=== PATIENT | male | born 1955 | race Caucasian/White ===

== ENCOUNTER 2019-08-03 12:51 | Outpatient (CLI) | payer MEDICARE, OTHER ==
[2019-08-03] MEDS ORDERED: Aspirin Chewable 81 MG TAB ONE (15:35)
== END 2019-08-03 12:52 | disposition home or self-care (01) ==
PROVIDERS: ATTEND Family Medicine
DX: R94.31 Abnormal electrocardiogram [ECG] [EKG] (principal); I10 Essential (primary) hypertension
CPT/HCPCS: 93017

== ENCOUNTER 2019-09-20 06:06 | Outpatient (CLI) | payer MEDICARE, OTHER ==
[2019-09-20 11:04] LABS: #Basophils 0.1 thou/uL (0.0-0.2); #Eosinphils 0.1 thou/uL (0.0-0.7); #Lymphocytes 2.1 thou/uL (1.20-3.40); #Monocytes 0.8 thou/uL (0.11-0.59); #Neutrophils 3.6 thou/uL (1.40-6.50); %Eosinophils 2.1 % (0.0-10.0); %Lymphocytes 31.8 % (21.0-51.0); %Monocytes 11.5 % (0.0-10.0); %Neutrophils 53.7 % (42.0-75.0); Hemoglobin 15.2 g/dL (14.0-18.0); Mean Corpuscular HGB CONC 33.9 g/dL (32.0-36.0); Mean Corpuscular Hemoglobin 33.9 pg (27.0-31.0); Mean Platelet Volume 7.9 fL (7.4-10.4); Platelet Count 234 thou/uL (130-400); RBC Distribution Width 11.5 % (11.5-14.5); Red Blood Cell (RBC) Count 4.47 mill/uL (4.70-6.10); White Blood Cell (WBC) Count 6.7 thou/uL (4.8-10.8)
[2019-09-20 11:30] LABS: ALT (SGPT) 32 U/L (8-55); AST (SGOT) 28 U/L (5-34); Albumin 4.7 g/dL (3.4-4.8); Alkaline Phosphatase 47 U/L (40-110); Anion Gap 14 mmol/L (10-20); BUN (Urea Nitrogen) 22 mg/dL (8.4-25.7); Bilirubin, Total 0.6 mg/dL (0.2-1.2); Calc. Creatinine Clearance 0 mL/min (70-130); Calcium 9.1 mg/dL (7.8-10.44); Carbon Dioxide 22 mmol/L (23-31); Chloride 107 mmol/L (98-107); Estimated GFR-MDRD 60; Globulin 2.5 g/dL (2.4-3.5); Glucose 92 mg/dL (80-115); Potassium 4.2 mmol/L (3.5-5.1); Protein, Total 7.2 g/dL (5.8-8.1); Sodium 139 mmol/L (136-145)
[2019-09-20 17:21] LABS: SARS-CoV-2 MS2 Positive; SARS-CoV-2 N Gene Negative; SARS-CoV-2 S Gene Negative; SARS-CoV-2 orf1ab Negative
== END 2019-09-20 06:07 | disposition home or self-care (01) ==
LOC: LABBT 06:06
PROVIDERS: ATTEND Internal Medicine Cardiovascular Disease
DX: Z01.812 Encounter for preprocedural laboratory examination (principal); Z11.59 Encounter for screening for other viral diseases; R94.39 Abnormal result of other cardiovascular function study
CPT/HCPCS: 80053; 85025; U0002; 87635; U0003

== ENCOUNTER 2019-09-22 06:04 | Observation (INO) | payer MEDICARE, OTHER ==
[2019-09-20 09:21] VITALS: BMI 30.1
[2019-09-22] MEDS ORDERED: Diazepam 5 MG TAB ONE (06:52)
[2019-09-22] MEDS ORDERED: Fentanyl 100 MCG/2 ML VIAL ONE ×2 (07:23→13:29)
[2019-09-22] MEDS ORDERED: Midazolam HCl 2 mg/2 ml Vial ONE ×2 (07:23→13:28)
[2019-09-22] MEDS ORDERED: Nitroglycerin 100MG/250ML BOT 250 ML ONE (08:02)
[2019-09-22] MEDS ORDERED: Heparin 10,000 UNITS/1 ML VIAL ONE ×2 (08:16→08:55)
[2019-09-22] MEDS ORDERED: Iopamidol 370 76% 50 ML VIAL FS ONE (09:19)
[2019-09-22] MEDS ORDERED: Iopamidol 370 76% 100 ML VIAL ONE (09:19)
[2019-09-22] MEDS ORDERED: Atropine Sulfate 1 mg/10 ml Syringe ONE (13:27)
[2019-09-22] MEDS ORDERED: Aspirin Chewable 81 MG TAB ONE (14:13)
[2019-09-22] MEDS ORDERED: Sodium Chloride 0.9% 1,000 ML IV SCH (14:15)
[2019-09-22] MEDS ORDERED: Midazolam HCl 2 mg/2 ml Vial IVP SCH (14:30)
[2019-09-22] MEDS ORDERED: Fentanyl 100 MCG/2 ML VIAL SLOW IVP SCH (14:30)
[2019-09-22] MEDS ORDERED: Loratadine 10 MG TAB PO PRN (14:41)
--- NOTE | 2019-09-22 18:38 | PRG ---
DATE OF SERVICE: 09/22/2019 Mr. Abraham did develop urinary retention today. The patient was noted to have some urinary retention just after the procedure, but did not void in the next few hours. Therefore, a Valerio catheter was placed. His nurse, Александр, informed me that he had 1 L of urine. I spoke with Dr. Lauren who recommends keeping the Valerio catheter in and removing it in the office. Also will start him on Flomax. 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 The patient did not have much urgency at all. He said he gets up about 3 times a night to urinate. He had a Valerio catheter placed after previous hernia repair, he tells me. Unfortunately, the catheter was able to be removed at that time. The patient will be released home tomorrow to follow up with Dr. Lauren. Job ID: [id number]
[2019-09-22] MEDS ORDERED: Acetaminophen 325 MG TAB PO PRN (20:12)
[2019-09-22] MEDS: TICAGRELOR 90 MG TABLET PO SCH (20:48)
[2019-09-22] MEDS ORDERED: Rosuvastatin 20 MG TAB PO SCH (21:00)
[2019-09-22] MEDS ORDERED: GLUCOSAMINE CHONDROITIN COMPLEX PO SCH (21:00)
[2019-09-22] MEDS ORDERED: Tamsulosin HCl 0.4 MG CAP PO SCH (21:00)
[2019-09-23 04:41] LABS: #Eosinphils 0.1 thou/uL (0.0-0.7); #Lymphocytes 1.8 thou/uL (1.20-3.40); #Monocytes 0.7 thou/uL (0.11-0.59); #Neutrophils 6.1 thou/uL (1.40-6.50); %Basophils 0.5 % (0.0-1.0); %Lymphocytes 20.7 % (21.0-51.0); %Neutrophils 69.9 % (42.0-75.0); Hemoglobin 13.8 g/dL (14.0-18.0); Mean Corpuscular HGB CONC 33.5 g/dL (32.0-36.0); Mean Corpuscular Hemoglobin 33.2 pg (27.0-31.0); Mean Corpuscular Volume 99.3 fL (78.0-98.0); Mean Platelet Volume 7.3 fL (7.4-10.4); Platelet Count 214 thou/uL (130-400); RBC Distribution Width 11.6 % (11.5-14.5); Red Blood Cell (RBC) Count 4.14 mill/uL (4.70-6.10); White Blood Cell (WBC) Count 8.7 thou/uL (4.8-10.8)
[2019-09-23 05:05] LABS: ALT (SGPT) 26 U/L (8-55); AST (SGOT) 22 U/L (5-34); Albumin 4.1 g/dL (3.4-4.8); Alkaline Phosphatase 40 U/L (40-110); Anion Gap 13 mmol/L (10-20); BUN (Urea Nitrogen) 15 mg/dL (8.4-25.7); Bilirubin, Total 0.7 mg/dL (0.2-1.2); Calc. Creatinine Clearance 94 mL/min (70-130); Calcium 8.8 mg/dL (7.8-10.44); Carbon Dioxide 23 mmol/L (23-31); Chloride 108 mmol/L (98-107); Estimated GFR-MDRD 70; Globulin 2.2 g/dL (2.4-3.5); Glucose 93 mg/dL (80-115); Potassium 3.7 mmol/L (3.5-5.1); Protein, Total 6.3 g/dL (5.8-8.1); Sodium 140 mmol/L (136-145)
[2019-09-23] MEDS ORDERED: Multivit, Therapeutic 1 TAB PO SCH (09:00)
[2019-09-23] MEDS ORDERED: Fluticasone Propionate Nasal Spray 16 gm Bottle NASAL SCH (09:00)
[2019-09-23] MEDS ORDERED: Fish Oil 1,000 MG CAP PO SCH (09:00)
[2019-09-23] MEDS ORDERED: Prevnar 13-Val Conj/PF 0.5 ML SYRINGE IM ONE (09:00)
[2019-09-23] MEDS ORDERED: Amlodipine 5 MG TAB PO SCH (09:00)
[2019-09-23] MEDS ORDERED: Aspirin 81 mg Enteric Coated Tablet PO SCH (09:00)
[2019-09-23] MEDS ORDERED: Lisinopril 20 MG TAB PO SCH (09:00)
[2019-09-23] MEDS ORDERED: SAW PALMETTO 160 MG PO SCH (09:00)
[2019-09-23] MEDS: TICAGRELOR 90 MG TABLET PO SCH (09:02)
[2019-09-23 11:29] VITALS: BP 115/65; TEMP 98.1
--- NOTE | 2019-09-23 14:37 | DIS ---
DATE OF ADMISSION: 09/22/2019 DATE OF DISCHARGE: 09/23/2019 FINAL DIAGNOSES: 1. Coronary artery disease, single vessel. 2. Hypercholesterolemia. 3. Urinary retention. MEDICATIONS: At the time of discharge: 1. Aspirin 81 mg a day. 2. Lisinopril 20 mg a day. 3. Amlodipine 2.5 mg a day. 4. Rosuvastatin 40 mg a day. 5. Brilinta 90 mg twice a day. 6. Aspirin 81 mg a day. 7. Flomax 0.4 mg at bedtime. In summary, the patient was on the same medicines he came in on with the addition of the Brilinta and Flomax. HOSPITAL COURSE: Mr. Abraham underwent cardiac catheterization yesterday, revealed that he had a single-vessel coronary artery disease. There is a 50% LAD lesion and tortuous vessel and the proximal segment did not look flow-limiting and a 90% lesion in the mid LAD. The circumflex is left dominant with no obstructive stenosis. The right coronary is small, nondominant. No obstructive stenosis. Ejection fraction of 60%. The patient underwent stent implantation. The takeoff of the LAD was somewhat unusual and it did require bending the wire in 2 locations to access the LAD, but that was done successfully and his vessel was pre-dilated and stented with a 3.0 x 12 mm drug-coated stent up to 12 atmospheres. The pre stenosis was 90%, post 0% with a good step-up and step-down. It was noted at the conclusion of the procedure that he had quite a bit of urine in his bladder when we did the femoral arteriogram. The patient was unable to void following that and the nurse advised him to have a Valerio catheter, which he initially did not want to have done, but ultimately agreed to and the nurse told me that he actually had a liter of urine in his bladder. Therefore, we have kept him overnight for observation. He is voiding well. Unfortunately, there is no hematuria as he is on dual anti-platelet drugs and will need to be on these for stable future as he has a drug-coated stent. Flomax has been added. I suspect the patient has been chronically retaining urine as he has really only had just mild urgency to void from what I can tell yesterday. The patient will have a Valerio catheter left in place. Interestingly, he only was supine a few hours, about 4.5 hours before the catheter was placed, maybe 5 hours, but as mentioned, he had a very large residual in his bladder. The patient would not be a good candidate for any type of urologic procedure at this point as he does need dual anti-platelet drugs. Hopefully, the patient could be managed with Flomax and perhaps other medicines for his prostate. Ultimately, a procedure could be done, but this is not feasible at the present time. I discussed in detail with the patient's today that he will be released home. He does have a 50% proximal LAD lesion, which was not stented. It did not look flow-limiting. At some point, I told him that we would like to do a stress test to look for it to see if he still has any residual ischemia. The patient has severely abnormal stress test initially prior to the stent, but I would wait a few months before putting him on the treadmill. The patient is advised to avoid heavy physical exertion for at least a few weeks. We will see him in the office in a couple weeks. Job ID: [id number]
--- NOTE | 2019-09-25 16:12 | EKG ---
Test Reason : POST STENT Blood Pressure : / mmHG Vent. Rate : 046 BPM Atrial Rate : 046 BPM P-R Int : 220 ms QRS Dur : 100 ms QT Int : 436 ms P-R-T Axes : 038 -21 -15 degrees QTc Int : 381 ms Marked sinus bradycardia with 1st degree A-V block Nonspecific T wave abnormality Abnormal ECG When compared with ECG of 24-JUL-2016 08:15, LA interval has increased Nonspecific T wave abnormality now evident in Lateral leads Confirmed by SHERRELL RILEY (2) on 09/25/2019 4:12:14 PM Referred By: MAHNAZ Confirmed By:SHERRELL RILEY
== END 2019-09-23 13:03 | disposition home or self-care (01) ==
LOC: CCL 06:04 → 2SE 14:36
PROVIDERS: ADMIT Internal Medicine Cardiovascular Disease; ATTEND Internal Medicine Cardiovascular Disease
PROC: 4A023N7 Measurement of Cardiac Sampling and Pressure, Left Heart, Percutaneous Approach (ICD-10-PCS; principal; 2019-09-22)
PROC: B2111ZZ Fluoroscopy of Multiple Coronary Arteries using Low Osmolar Contrast (ICD-10-PCS; 2019-09-22)
DX: I25.10 Atherosclerotic heart disease of native coronary artery without angina pectoris (principal); E78.00 Pure hypercholesterolemia, unspecified; I10 Essential (primary) hypertension; I34.0 Nonrheumatic mitral (valve) insufficiency; R33.9 Retention of urine, unspecified; Z79.82 Long term (current) use of aspirin; Z79.899 Other long term (current) drug therapy; Z88.0 Allergy status to penicillin; Z88.5 Allergy status to narcotic agent
CPT/HCPCS: 76942; 80053; 85025; 85347 ×3; 90670; 93005; 93458; C1769 ×2; C1874; C1887; C9600; G0009; G0378 ×2; 36415; 90471; 92928; 99152; 99153; J0461; J1644; J2250; J3010; Q9967